=== PATIENT | male | born 1985 | race Two or more races ===

== ENCOUNTER 2016-07-18 14:52 | Emergency (ER) | payer MEDICAID ==
[2016-07-18] MEDS ORDERED: Ketorolac 60 MG/2 ML SDV IM ONE (15:21)
[2016-07-18] MEDS ORDERED: Take Home: Amoxicillin 875 MG Tab, 2 Tab Pack PO ONE (15:22)
[2016-07-18 15:27] VITALS: BP 145/85
--- NOTE | 2016-07-19 11:38 | ER ---
Date of Service: 07/18/2016 SUBJECTIVE: The patient presents to the emergency room with complaints of sore throat. The patient states that he has been experiencing these symptoms for several days. He states he is having difficulties with swallowing. He states he has not been experiencing any chest pain or shortness of breath. PAST MEDICAL HISTORY: None. MEDICATIONS: None. ALLERGIES: To erythromycin base. REVIEW OF SYSTEMS: General: Denies any fever or chills. HEENT: Does complain of sore throat and left ear pain. Respiratory: No shortness breath. Cardiac: Denies any substernal chest pain. No jaw, arm, neck, or back pain. Gastrointestinal: Denies any abdominal pain. No nausea, vomiting, diarrhea, melena, hematochezia, or hematemesis. PHYSICAL EXAMINATION: General: This is a 30-year-old male, in no acute distress. Vital Signs: Blood pressure is 145/85, pulse rate 70, temperature is 36.7, respiratory rate 16, O2 saturations 97%. Skin: Warm, pink, and dry. HEENT: Head is normocephalic, atraumatic. Eyes; PERRLA. Extraocular movements are intact. His oral mucosa is erythematous. He does have huge tonsils with significant hyper edema to the posterior hypopharynx. No obvious parapharyngeal abscess is noted. It does appear that the inflammation localizes in nature. Rapid strep was performed and was positive. ASSESSMENT: Strep pharyngitis. PLAN: The patient was started on amoxicillin 875 mg 1 twice daily for 10 days. Drink plenty of fluids. Tylenol, ibuprofen for discomfort. He was advised to keep his appointment with his primary care provider in approximately 10 days. All questions were answered. MWK: 07/19/2016 06:59:29 MODL: 07/19/2016 11:29:58 /[id number]
== END 2016-07-18 15:45 | disposition home or self-care (01) ==
LOC: VM.ED 14:52
DX: J02.0 Streptococcal pharyngitis (principal); Z88.1 Allergy status to other antibiotic agents
CPT/HCPCS: 87880; 96372; 99283; A9270; J1885

== ENCOUNTER 2019-08-27 23:30 | Emergency (ER) | payer MEDICAID ==
[2019-08-27] MEDS ORDERED: Sodium Chloride 0.9% 10 ML Syringe FLUSH PRN (23:54)
[2019-08-27] MEDS ORDERED: Sodium Chloride 0.9% 1,000 ML IV ONE (23:57)
[2019-08-27] MEDS ORDERED: Insulin Regular, Human 100 Units/ML 3 ML Vial IVPUSH ONE (23:58)
--- NOTE | 2019-08-28 00:20 | EDM.PDOC ---
ED HPI GENERAL MEDICAL PROBLEM - General Chief Complaint: General Stated Complaint: hyperglycemia Time Seen by Provider: 08/27/19 23:50 Source of Information: Reports: Patient History Limitations: Reports: No Limitations - History of Present Illness INITIAL COMMENTS - FREE TEXT/NARRATIVE: Pt. presents to ER with complaints of fatigue, polyuria, and elevated blood sugar. He states that he has a history of type 2 DM but has not been on any medication for over a year. He states that he infrequently but when he does take it, he states that it is in the 110-120 range. He states that it was 220 when he took it last week and he states his meter read over 500 today. Pt. denies any fever or chills. No rashes. No cough or chest congestion. Denies any nausea, vomiting, or diarrhea. Pt. smokes 1/2 pack of cigarettes per day. He perviously has seen Catia Jain and Dr. Pickering in the past. Perviously he got his primary care through the [facility] in [place]. Onset Date: 08/27/19 Duration: Getting Worse Location: Reports: Generalized Abdomen Pain Score (Numeric/FACES): 3 - Related Data Allergies Allergy/AdvReac Type Severity Reaction Status Date / Time erythromycin base Allergy Swelling Verified 08/27/19 23:37 [From Erythrocin] Home Meds: Home Meds . [No Known Home Meds] 07/18/16 [History] Past Medical History - Past Health History Medical/Surgical History: Denies Medical/Surgical History Endocrine/Metabolic History: Reports: Diabetes, Type II Social & Family History - Tobacco Use Smoking Status *Q: Current Every Day Smoker Years of Tobacco use: 15 Packs/Tins Daily: 0.5 ED ROS GENERAL - Review of Systems Review Of Systems: See Below Constitutional: Reports: Malaise, Fatigue HEENT: Reports: No Symptoms Respiratory: Reports: No Symptoms Cardiovascular: Reports: No Symptoms Endocrine: Reports: Fatigue, High Glucose, Polyuria, Other (thirst) GI/Abdominal: Reports: No Symptoms : Reports: No Symptoms Musculoskeletal: Reports: No Symptoms Skin: Reports: No Symptoms Neurological: Reports: No Symptoms Psychiatric: Reports: No Symptoms Hematologic/Lymphatic: Reports: No Symptoms Immunologic: Reports: No Symptoms ED EXAM, GENERAL - Physical Exam Exam: See Below Exam Limited By: No Limitations General Appearance: Alert, WD/WN, No Apparent Distress Eye Exam: Bilateral Eye: EOMI, PERRL Throat/Mouth: Normal Inspection, Normal Lips, Normal Voice, No Airway Compromise Head: Atraumatic, Normocephalic Neck: Normal Inspection, Supple, Non-Tender Respiratory/Chest: No Respiratory Distress, Lungs Clear, Normal Breath Sounds, No Accessory Muscle Use, Chest Non-Tender Cardiovascular: Normal Peripheral Pulses, Regular Rate, Rhythm, No Edema, No JVD , No Murmur Peripheral Pulses: 4+: Radial (L) GI/Abdominal: Soft, Non-Tender, No Organomegaly, No Mass (Male) Exam: Deferred Rectal (Males) Exam: Deferred Back Exam: Normal Inspection, Full Range of Motion Extremities: Normal Inspection, Normal Range of Motion, Non-Tender, No Pedal Edema, Normal Capillary Refill Neurological: Alert, Oriented, CN II-XII Intact, Normal Cognition, Normal Gait, Normal Reflexes, No Motor/Sensory Deficits Psychiatric: Normal Affect, Normal Mood Skin Exam: Warm, Dry, Intact, Normal Color Lymphatic: No Adenopathy Course - Vital Signs Last Recorded V/S: Last Vital Signs Temp 35.9 C L 08/27/19 23:31 Pulse 96 08/27/19 23:31 Resp 18 08/27/19 23:31 BP 160/92 H 08/27/19 23:31 Pulse Ox 96 08/27/19 23:31 - Orders/Labs/Meds Orders: Active Orders 24 hr Category Date Time Status ABG [BLOOD GAS ARTERIAL] [BG] Stat Lab 08/27/19 23:57 Ordered Blood Alcohol [ETHANOL BLOOD MEDICAL] [CHEM] Stat Lab 08/27/19 23:54 Ordered CBC WITH AUTO DIFF [HEME] Stat Lab 08/27/19 23:54 Ordered COMPREHENSIVE METABOLIC PN,CMP [CHEM] Stat Lab 08/27/19 23:54 Ordered CRP [C-REACTIVE PROTEIN] [CHEM] Stat Lab 08/27/19 23:54 Ordered INR,PT,PROTHROMBIN TIME [COAG] Stat Lab 08/27/19 23:54 Ordered LACTIC ACID [CHEM] Stat Lab 08/27/19 23:54 Ordered MAGNESIUM [CHEM] Stat Lab 08/27/19 23:54 Ordered PHOSPHORUS [CHEM] Stat Lab 08/27/19 23:54 Ordered TSH ULTRASENSITIVE [CHEM] Stat Lab 08/27/19 23:54 Ordered UA RFX UMAIR AND CULT IF INDIC [URIN] Stat Lab 08/27/19 23:58 Ordered Sodium Chloride 0.9% [Normal Saline] 1,000 ml Med 08/27/19 23:57 Active IV .BOLUS Sodium Chloride 0.9% [Saline Flush] Med 08/27/19 23:54 Active 10 ml FLUSH ASDIRECTED PRN Peripheral IV Insertion Adult [OM.PC] Routine Oth 08/27/19 23:54 Ordered Medication Orders Sodium Chloride (Normal Saline) 1,000 mls @ 1,000 mls/hr IV .BOLUS ONE Stop: 08/28/19 00:56 Last Admin: 08/28/19 00:03 Dose: 1,000 mls/hr Sodium Chloride (Saline Flush) 10 ml FLUSH ASDIRECTED PRN PRN Reason: Keep Vein Open Last Admin: 08/28/19 00:04 Dose: 10 ml Labs: Laboratory Tests 08/27/19 Range/Units 23:41 POC Glucose 432 H* (74-106) mg/dL Meds: Medications Generic Name Dose Route Start Last Admin Trade Name Freq PRN Reason Stop Dose Admin Sodium Chloride 1,000 mls @ 1,000 mls/hr 08/27/19 23:57 08/28/19 00:03 Normal Saline IV 08/28/19 00:56 1,000 mls/hr .BOLUS ONE Administration Sodium Chloride 10 ml 08/27/19 23:54 08/28/19 00:04 Saline Flush FLUSH 10 ml ASDIRECTED PRN Administration Keep Vein Open Discontinued Medications Generic Name Dose Route Start Last Admin Trade Name Freq PRN Reason Stop Dose Admin Insulin Human Regular 10 unit 08/27/19 23:58 08/28/19 00:08 Humulin R IVPUSH 08/27/19 23:59 10 units ONETIME ONE Administration Departure - Departure Time of Disposition: 01:31 Disposition: Home, Self-Care 01 Clinical Impression: Hyperglycemia - Discharge Information Sepsis Event Note - Evaluation Sepsis Screening Result: No Definite Risk - Focused Exam Vital Signs: Vital Signs Temp Pulse Resp BP Pulse Ox 08/27/19 23:31 35.9 C L 96 18 160/92 H 96 Date Exam was Performed: 08/28/19 Time Exam was Performed: 00:13 - Problem List Review Problem List Initiated/Reviewed/Updated: Yes - My Orders Last 24 Hours: My Active Orders 08/27/19 23:54 Blood Alcohol [ETHANOL BLOOD MEDICAL] [CHEM] Stat CBC WITH AUTO DIFF [HEME] Stat COMPREHENSIVE METABOLIC PN,CMP [CHEM] Stat CRP [C-REACTIVE PROTEIN] [CHEM] Stat INR,PT,PROTHROMBIN TIME [COAG] Stat LACTIC ACID [CHEM] Stat MAGNESIUM [CHEM] Stat PHOSPHORUS [CHEM] Stat TSH ULTRASENSITIVE [CHEM] Stat Sodium Chloride 0.9% [Saline Flush] 10 ml FLUSH ASDIRECTED PRN Peripheral IV Insertion Adult [OM.PC] Routine 08/27/19 23:57 ABG [BLOOD GAS ARTERIAL] [BG] Stat Sodium Chloride 0.9% [Normal Saline] 1,000 ml IV .BOLUS 08/27/19 23:58 UA RFX UMAIR AND CULT IF INDIC [URIN] Stat - Assessment/Plan Last 24 Hours: My Active Orders 08/27/19 23:54 Blood Alcohol [ETHANOL BLOOD MEDICAL] [CHEM] Stat CBC WITH AUTO DIFF [HEME] Stat COMPREHENSIVE METABOLIC PN,CMP [CHEM] Stat CRP [C-REACTIVE PROTEIN] [CHEM] Stat INR,PT,PROTHROMBIN TIME [COAG] Stat LACTIC ACID [CHEM] Stat MAGNESIUM [CHEM] Stat PHOSPHORUS [CHEM] Stat TSH ULTRASENSITIVE [CHEM] Stat Sodium Chloride 0.9% [Saline Flush] 10 ml FLUSH ASDIRECTED PRN Peripheral IV Insertion Adult [OM.PC] Routine 08/27/19 23:57 ABG [BLOOD GAS ARTERIAL] [BG] Stat Sodium Chloride 0.9% [Normal Saline] 1,000 ml IV .BOLUS 08/27/19 23:58 UA RFX UMAIR AND CULT IF INDIC [URIN] Stat Plan: Pt. repeat bedside glucose was 184mg/dl after 10u regular insulin at a liter of normal saline IV. He refuses admission/observation and states that he is feeling much improved. Advised to follow-up in clinic this week or next. He states that his max lantus dose was 32 units daily. He states that he had stopped taking his metformin some time before stopping his lantus; as his blood glucose was under adequate control with lantus alone, will not refill the metformin. Advised him to start the Lantus as 20u/day for now and follow-up with primary care/[employer] for further dosing adjustments depending on his home glucose readings. He is quite hypertensive. He is asymptomatic and was not started on any medication in ER. Again, this will need to be addressed by primary care. Advised patient to stop smoking.
[2019-08-28 00:53] LABS: CHLORIDE,CL 101 mmol/L (98-107); SODIUM,NA 138 mmol/L (136-145)
[2019-08-28 00:55] LABS: ANION GAP 15.2 mmol/L (10-20)
[2019-08-28] MEDS ORDERED: Sodium Chloride 0.9% 500 ML IV ONE (01:12)
[2019-08-28 01:23] VITALS: BP 153/92; PULSE 83
[2019-08-28 07:10] LABS: BASE EXCESS ARTERIAL -1 mmol/L (-2-3); BICARBONATE,ARTERIAL 24 mmol/L (22-26); PCO2 ARTERIAL 42 mmHG (35-45); PO2 ARTERIAL 73 mmHG (80-105)
[2019-08-28 07:11] LABS: O2 FLOW RATE 0 L/min
== END 2019-08-28 01:42 | disposition home or self-care (01) ==
LOC: VM.ED 23:30
DX: E11.65 Type 2 diabetes mellitus with hyperglycemia (principal); F17.210 Nicotine dependence, cigarettes, uncomplicated; Z88.1 Allergy status to other antibiotic agents
CPT/HCPCS: 36415; 36600; 80053; 80307; 81003; 82803; 82962; 83605; 83735; 84100; 84443; 85025; 85610; 86140; 96360; 99284-25; J1815-GY; J7030; J7040

== ENCOUNTER 2019-11-09 16:37 | Emergency (ER) | payer OTHER, MEDICAID ==
[2019-11-09 16:57] VITALS: BP 157/81; PULSE 106
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
--- NOTE | 2019-11-09 18:00 | CR ---
[id number] RAD/RAD Cervical Spine 2-3V EXAM: RAD Cervical Spine 2-3V CLINICAL DATA: TRAUMA AND PAIN. COMPARISON: NO PREVIOUS SIMILAR EXAM IS AVAILABLE. FINDINGS: No obvious fracture or subluxation is seen The cross table swimmer's projection is somewhat limited There may be slight anterior angulation at the C5-C6 disc space. Consider CAT scan for further evaluation IMPRESSION: QUESTION OF PATHOLOGY AT C5-C6 CONSIDER CAT SCAN Balaji Mariano MD 11/09/19 [id number] Thank you for allowing us to participate in the care of your patient.
--- NOTE | 2019-11-09 19:22 | CT ---
[id number] CT/CT Cervical Spine WO IV Exam: CT Cervical Spine WO IV Clinical Data: TRAUMA COMPARISON: CORRELATION IS MADE WITH THE EARLIER PLAIN FILMS FINDINGS: No fracture or subluxation is seen There is a normal appearance of the C1-C2 articulation The prevertebral soft tissues are unremarkable IMPRESSION: NO FRACTURE OR SUBLUXATION Balaji Mariano MD 11/09/19 1929 Thank you for allowing us to participate in the care of your patient.
== END 2019-11-09 17:56 | disposition home or self-care (01) ==
LOC: VM.ED 16:37
DX: S16.1XXA Strain of muscle, fascia and tendon at neck level, initial encounter (principal); E11.9 Type 2 diabetes mellitus without complications; F17.210 Nicotine dependence, cigarettes, uncomplicated; Z79.4 Long term (current) use of insulin; Z88.1 Allergy status to other antibiotic agents; Z79.899 Other long term (current) drug therapy; V89.2XXA Person injured in unspecified motor-vehicle accident, traffic, initial encounter
CPT/HCPCS: 72040; 72125; 99284-25

== ENCOUNTER 2019-11-11 15:27 | Emergency (ER) | payer OTHER, MEDICAID ==
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
[2019-11-11 16:30] VITALS: BP 154/91; PULSE 92
[2019-11-11 16:30] LABS: BARBITURATE SCREEN,URINE NEGATIVE (NEGATIVE); BENZODIAZEPINES SCREEN,URINE NEGATIVE (NEGATIVE); EDDP,URINE SCREEN NEGATIVE (NEGATIVE); METHAMPHETAMINE SCREEN, URINE NEGATIVE (NEGATIVE); TCA SCREEN,URINE NEGATIVE (NEGATIVE); THC SCREEN,URINE 50 NG/ML POSITIVE (NEGATIVE)
[2019-11-11 16:44] LABS: CHLORIDE,CL 105 mmol/L (98-107); SODIUM,NA 143 mmol/L (136-145)
[2019-11-11 16:51] LABS: ANION GAP 17.7 mmol/L (10-20)
== END 2019-11-11 17:10 | disposition home or self-care (01) ==
LOC: VM.ED 15:27
DX: E86.0 Dehydration (principal); E11.9 Type 2 diabetes mellitus without complications; Z79.4 Long term (current) use of insulin; Z88.1 Allergy status to other antibiotic agents; Z79.899 Other long term (current) drug therapy
CPT/HCPCS: 36415; 80053; 80305-QW; 81001; 85025; 86140; 99284

== ENCOUNTER 2023-02-06 18:29 | Emergency (ER) | payer OTHER, MEDICAID ==
[2023-02-06 18:39] VITALS: BP 144/87; PULSE 68
[2023-02-06] MEDS ORDERED: Take Home: Amoxicillin/Clavulanate K 875-125 MG Tab, 2 Tab Pack PO ONE (18:41)
== END 2023-02-06 18:50 | disposition home or self-care (01) ==
LOC: VM.ED 18:29
DX: J03.90 Acute tonsillitis, unspecified (principal); H66.92 Otitis media, unspecified, left ear; E11.9 Type 2 diabetes mellitus without complications; Z88.1 Allergy status to other antibiotic agents; Z79.84 Long term (current) use of oral hypoglycemic drugs; Z79.899 Other long term (current) drug therapy
CPT/HCPCS: 99283; A9270-GY